=== PATIENT | female | born 1990 | race Caucasian/White ===

== ENCOUNTER 2020-05-28 07:49 | Day surgery (SDC) | payer OTHER ==
[~2020-05-28] VITALS: Ht 167.6 cm; Wt 79.8 kg
[~2020-05-28 07:49] MED LIST: PRENA1 TRUE CO1 EACH
[2020-05-30] MEDS ORDERED: PROMETRIUM200 MG (15:20)
[2020-05-30] MEDS ORDERED: SPRINTEC 28 DA1 EACH (15:20)
[2020-05-30] MEDS ORDERED: CONCEPT DHA CA1 EACH (15:20)
== END 2020-05-28 10:29 | disposition home or self-care (01) ==
LOC: O/R 07:49 → CIR.AMB 07:49 → ER 07:49 → CIR.AMB 07:52 → ER 07:52 → EDSTATUS 08:00 → CIR.AMB 10:29 → O/R 13:10
PROVIDERS: ATTEND Obstetrics & Gynecology
DX: O02.1 Missed abortion (principal); Z20.822 Contact with and (suspected) exposure to COVID-19

== ENCOUNTER 2020-10-12 15:03 | Emergency (ER) | payer OTHER ==
[~2020-10-12] VITALS: Ht 167.6 cm; Wt 83.9 kg
[~2020-10-12 15:03] MED LIST changes: +CONCEPT DHA CA1 EACH; +PROMETRIUM200 MG; +SPRINTEC 28 DA1 EACH
[2020-10-12] MEDS ORDERED: ACETAMINOPHEN650 M2 PO (19:28)
== END 2020-10-12 20:08 | disposition home or self-care (01) ==
LOC: ER 15:03
DX: R10.2 Pelvic and perineal pain (principal); Z33.1 Pregnant state, incidental

== ENCOUNTER 2020-12-31 09:01 | Outpatient (CLI) | payer OTHER ==
[~2020-12-31 09:01] MED LIST changes: +ACETAMINOPHEN650 M2 PO
== END 2021-01-01 15:13 | disposition home or self-care (01) ==
LOC: OBS/DEL 09:01
PROVIDERS: ATTEND Obstetrics & Gynecology
DX: O26.892 Other specified pregnancy related conditions, second trimester (principal); R10.2 Pelvic and perineal pain; Z3A.24 24 weeks gestation of pregnancy

== ENCOUNTER 2021-04-18 02:03 | Inpatient (IN) | payer OTHER ==
[~2021-04-18] VITALS: Ht 167.6 cm; Wt 92.1 kg
[2021-04-18] MEDS ORDERED: VISTARIL25 MG PO (02:25)
[2021-04-18] MEDS ORDERED: PRENATAL TABLE1 EAC1 PO (02:25)
== END 2021-04-20 10:59 | disposition home or self-care (01) | DRG 807 ==
LOC: LDR 02:03 → OB/GYN 02:03
PROVIDERS: ADMIT Obstetrics & Gynecology; ATTEND Obstetrics & Gynecology
PROC: 10E0XZZ Delivery of Products of Conception, External Approach (ICD-10-PCS; principal; 2021-04-18)
PROC: 4A1HXCZ Monitoring of Products of Conception, Cardiac Rate, External Approach (ICD-10-PCS; 2021-04-18)
DX: O80 Encounter for full-term uncomplicated delivery (principal); Z37.0 Single live birth; Z3A.39 39 weeks gestation of pregnancy; Z20.822 Contact with and (suspected) exposure to COVID-19

== ENCOUNTER 2023-10-31 18:14 | Inpatient (IN) | payer OTHER ==
[~2023-10-31] VITALS: Ht 167.6 cm; Wt 90.7 kg
[~2023-10-31 18:14] MED LIST changes: +PRENATAL TABLE1 EAC1 PO; +VISTARIL25 MG PO
[2023-10-31] MEDS ORDERED: RINGERS SOLUTION,LACTATED 1,000 ML IV SCH (18:45)
[2023-10-31] MEDS ORDERED: AMPICILLIN SODIUM 2,000 MG VIAL IV STA (18:48)
[2023-10-31] MEDS ORDERED: NIFEDIPINE 30 MG TAB.SA.OSM PO SCH (19:00)
[2023-10-31] MEDS ORDERED: TERBUTALINE SULFATE 1 MG/ML AMPUL SUBCUTANEO SCH (19:00)
[2023-10-31 19:56] LABS: HEMOGLOBIN 11.1 g/dL (12.0-15.00); MEAN CELL VOLUME 89.6 fL (80.00-100.00); MEAN CORPUSCULAR HEMOGLOBIN 30.1 pg (27.00-32.0); MEAN CORPUSCULAR HGB CONC 33.6 g/dl (32.0-36.0); PLATELET COUNT 236 K/uL (150-450); RED BLOOD COUNT 3.68 M/uL (4.00-6.00); RED CELL DISTRIBUTION WIDTH 15.3 % (11.5-14.5)
[2023-10-31 19:59] LABS: URINE APPEARANCE Clear; URINE BACTERIA 212.9 uL (0.0-1933); URINE BILIRRUBIN Negative (NEGATIVE); URINE BLOOD Negative; URINE COLOR Yellow; URINE EPITHELIAL CELLS 9.7 uL (0.0-38.8); URINE GLUCOSE Negative (NEGATIVE); URINE LEUKOCYTE Negative; URINE NITRATE Negative; URINE PROTEIN Negative (NEGATIVE); URINE UROBILINOGEN 0.2 E.U./dl; URINE WBC 6.4 uL (0.0-23.2)
[2023-10-31 20:01] LABS: URINE KETONE 80 (NEGATIVE); URINE RBC 1.6 uL (0.0-20.8)
[2023-10-31] MEDS ORDERED: hydrOXYzine PAMOATE 50 MG CAPSULE PO STA (20:04)
[2023-10-31] MEDS ORDERED: TERBUTALINE SULFATE 1 MG/ML AMPUL SUBCUTANEO STA (20:04)
[2023-10-31 20:19] LABS: INR 0.95; PARTIAL THROMBOPLASTIN TIME 27.6 SECONDS (22.0-34.0)
[2023-10-31] MEDS ORDERED: NIFEDIPINE20 MG PO (20:57)
[2023-10-31] MEDS ORDERED: hydrOXYzine PAMOATE 50 MG CAPSULE PO ONE (21:06)
[2023-11-01] MEDS ORDERED: AMPICILLIN SODIUM 1,000 MG VIAL IV SCH
[2023-11-01] MEDS ORDERED: IRON FUM,PS/FOLIC/BCOMP,C NO.9 1 CAP CAPSULE PO SCH (09:00)
[2023-11-02] MEDS ORDERED: DIPHENHYDRAMINE HCL 50 MG CAPSULE PO ONE ×2 (04:03→04:15)
[2023-11-02] MEDS ORDERED: TERCONAZOLE 20 GM TUBE VAG SCH ×2 (05:15→21:00)
[2023-11-02] MEDS ORDERED: OXYTOCIN 20 UNITS/500ML RL PIGGYBAG IV ONE (08:24)
[2023-11-03] MEDS ORDERED: TERBUTALINE SULFATE 1 MG/ML AMPUL ONE (11:45)
[2023-11-03] MEDS ORDERED: NIFEDIPINE 10 MG CAPSULE PO ONE (11:48)
[2023-11-03] MEDS ORDERED: NIFEDIPINE 30 MG TAB.SA.OSM PO SCH (12:00)
[2023-11-03] MEDS ORDERED: TERBUTALINE SULFATE 2.5 MG TABLET PO SCH (13:00)
== END 2023-11-03 11:32 | disposition home or self-care (01) | DRG 833 ==
LOC: LDR 18:14
PROVIDERS: ADMIT Specialist; ATTEND Specialist
PROC: 4A1HXCZ Monitoring of Products of Conception, Cardiac Rate, External Approach (ICD-10-PCS; principal; 2023-10-31)
DX: O24.410 Gestational diabetes mellitus in pregnancy, diet controlled (principal); Z3A.34 34 weeks gestation of pregnancy; Z20.822 Contact with and (suspected) exposure to COVID-19

== ENCOUNTER 2023-11-22 05:01 | Inpatient (IN) | payer OTHER ==
[~2023-11-22] VITALS: Ht 167.6 cm; Wt 2.7 kg
[~2023-11-22 05:01] MED LIST changes: +NIFEDIPINE20 MG PO
[2023-11-22 05:16] VITALS: BP 117/78
[2023-11-22] MEDS ORDERED: CEFAZOLIN SODIUM 1,000 MG VIAL IV SCH ×2 (06:30→20:00)
[2023-11-22] MEDS ORDERED: RINGERS SOLUTION,LACTATED 1,000 ML IV SCH (06:30)
[2023-11-22 06:33] VITALS: BP 123/76; O2SAT 99
[2023-11-22 11:42] VITALS: BP 121/74; O2SAT 99
[2023-11-22] MEDS ORDERED: ERYTHROMYCIN BASE OPHT 1GM EACH TUBE OP ONE (12:29)
[2023-11-22] MEDS ORDERED: OXYTOCIN 10 UNITS/ML VIAL ONE (12:30)
[2023-11-22] MEDS ORDERED: CARBOPROST TROMETHAMINE 250 MCG/ML AMPUL IM ONE (12:32)
[2023-11-22] MEDS ORDERED: MEPERIDINE HCL/PF 50 MG/ML VIAL IM SCH (15:00)
[2023-11-22] MEDS ORDERED: MEPERIDINE HCL/PF 25 MG,MEPERIDINE HCL/PF 50 MG IM SCH (15:45)
[2023-11-22] MEDS ORDERED: MORPHINE SULFATE 4 MG/ML VIAL IV ONE (15:50)
[2023-11-22 18:28] VITALS: BP 98/65
[2023-11-22] MEDS ORDERED: PROMETHAZINE HCL 25 MG/ML AMPUL IV SCH (20:00)
[2023-11-22 21:10] VITALS: BP 118/79
[2023-11-23 01:58] VITALS: BP 109/70
[2023-11-23] MEDS ORDERED: OxyCODONE HCL/APAP UD (PERCOCET) PO PRN (08:15)
[2023-11-23 08:22] LABS: HEMATOCRIT 31.5 % (36.0-45.00); HEMOGLOBIN 10.4 g/dL (12.0-15.00); MEAN CELL VOLUME 90.7 fL (80.00-100.00); MEAN CORPUSCULAR HEMOGLOBIN 29.8 pg (27.00-32.0); MEAN CORPUSCULAR HGB CONC 32.9 g/dl (32.0-36.0); PLATELET COUNT 240 K/uL (150-450); RED BLOOD COUNT 3.48 M/uL (4.00-6.00); RED CELL DISTRIBUTION WIDTH 15.5 % (11.5-14.5)
[2023-11-23 09:00] VITALS: BP 120/80
[2023-11-23 17:00] VITALS: BP 119/80
[2023-11-24 01:37] VITALS: BP 100/58
[2023-11-24 09:54] VITALS: BP 107/69
== END 2023-11-24 13:33 | disposition home or self-care (01) | DRG 788 ==
LOC: LDR 05:01 → O/R 14:22 → OB/GYN 15:41
PROVIDERS: ADMIT Specialist; ATTEND Specialist
PROC: 4A1HXCZ Monitoring of Products of Conception, Cardiac Rate, External Approach (ICD-10-PCS; 2023-11-22)
PROC: 10D00Z1 Extraction of Products of Conception, Low, Open Approach (ICD-10-PCS; principal; 2023-11-22 12:30)
DX: O32.8XX0 Maternal care for other malpresentation of fetus, not applicable or unspecified (principal); O24.420 Gestational diabetes mellitus in childbirth, diet controlled; Z3A.37 37 weeks gestation of pregnancy; Z37.0 Single live birth; Z20.822 Contact with and (suspected) exposure to COVID-19